=== PATIENT | male | born 1965 | race Caucasian/White ===

== ENCOUNTER → 2017-07-21 | Outpatient (CLI) | payer MEDICAID ==
[~2017-07-21] MED LIST: ASPI81TA50 PO; EFFIENT; NTG; lipitor
== END | disposition home or self-care (01) ==
LOC: RAD 09:15
PROVIDERS: ATTEND Internal Medicine
DX: R91.8 Other nonspecific abnormal finding of lung field (principal); Z87.01 Personal history of pneumonia (recurrent)
CPT/HCPCS: 71020

== ENCOUNTER 2020-05-02 19:38 | Inpatient (IN) | payer MEDICAID ==
[~2020-05-02] VITALS: Ht 172.7 cm; Wt 55.1 kg
--- NOTE | 2020-05-02 19:40 | NUR ---
LITO GEE FROM HOME FOR WEAKNESS, SOB, PRODUCTIVE COUGH "COUGHING UP WHITE STUFF FOR WEEKS, GETTING MORE AND MORE WEAK, FEELING SHORT OF BREATH, I'M BEEN FEELING SICK TO MY STOMACH AND THROWING UP TOO." PT ALTERED, PER EMS "HE COULD TELL US GENERAL INFO BUT THEN HE THOUGHT OUR EKG LEADS WERE A CELL PHONE CORD AND WAS TRYING TO CALL SOMEONE WITH IT." ORIENTED SELF, , PRESIDENT AND PLACE ONLY, UNABLE TO RECALL CURRENT MONTH/YEAR. EKG COMPLETED. CONT PULSE OX, BP, CARDIAC MONITORS IN PLACE. DR. WALTER AT BEDSIDE FOR EVALUATION. AWAITING ORDERS. CALL LIGHT IN REACH. FALL PRECAUTIONS IN PLACE. DENIES ANY CP, ABD PAIN OR ANY PAIN, DIZZINESS, ODONNELL, DIARRHEA OR RECENT TRAVEL.
--- NOTE | 2020-05-02 19:41 | NUR ---
FSBS 97 PER EMS ON SCENE. EMS ALSO REPORTS PT WAS HYPOXIC ON SCENE, 86-90%, PLACED ON 2L NC AND PULSE OX IMPROVED TO 97-99%
--- NOTE | 2020-05-02 20:00 | NUR ---
REPORT FROM GIRISH CABAN. FIRST CONTACT WITH PT. PT SITTING UP IN [facility], MOSTLY SLEEPY BUT ARROUSABLE TO VOICE. RR RAPID/SHALLOW WITH FREQUENT WET COUGH. BP/SPO2/ECG MONITORING IN PLACE. SINUS TACH NOTED ON MONITOR.
--- NOTE | 2020-05-02 20:01 | NUR ---
BEDSIDE REPORT AND TRANSFER OF CARE TO JAZMIN STOUT AT THIS TIME
[2020-05-02] MEDS ORDERED: SODIUM CHLORIDE 0.9% 1,000ML IVBOLUS ONE ×2 (20:30→21:00)
--- NOTE | 2020-05-02 20:30 | NUR ---
CHACORTA, family member: [phone]
[2020-05-02] MEDS ORDERED: CEFTRIAXONE PMX 1GM/50ML 50 ML ONE (20:44)
[2020-05-02 20:49] LABS: BASOPHILS % (AUTO) 0 % (0-1); EOSINOPHILS # (AUTO) 0.04 x10^3/uL (0-0.4); EOSINOPHILS % (AUTO) 0 % (1-7); LYMPHOCYTES # (AUTO) 0.28 x10^3/uL (1-3.4); LYMPHOCYTES % (AUTO) 3 % (22-44); MD NO; MEAN CORPUSCULAR HEMOGLOBIN 29.9 pg (27.5-34.5); MEAN CORPUSCULAR HGB CONC 33.1 g/dL (33.2-36.2); MEAN CORPUSCULAR VOLUME 90.3 fL (81-97); MEAN PLATELET VOLUME 8.6 fL (7.4-10.4); MONOCYTES # (AUTO) 0.32 x10^3/uL (0.2-0.8); MONOCYTES % (AUTO) 4 % (2-9); NEUTROPHILS # (AUTO) 8.26 x10^3/uL (1.8-6.8); NEUTROPHILS % (AUTO) 93 % (42-75); PLATELET COUNT 125 x10^3/uL (130-400); RED CELL DISTRIBUTION WIDTH 14.9 % (9.4-14.8)
--- NOTE | 2020-05-02 20:50 | NUR ---
ABX INITIATED. BC X2 DRAWN PRIOR TO ADMIN. PT UPDATED TO POC (ADMIT) AND DEMONSTRATES UNDERSTANDING.
[2020-05-02 20:59] LABS: ALANINE AMINOTRANSFERASE 9 U/L (12-78); ALBUMIN 2.7 g/dL (3.4-5.0); ANION GAP 7 mmol/L (5-15); CALCIUM 7.8 mg/dL (8.5-10.1); CHLORIDE 104 mmol/L (98-107); CREATININE 0.79 mg/dL (0.7-1.3)
[2020-05-02] MEDS ORDERED: CEFTRIAXONE PMX 1GM/50ML 50 ML IVPB ONE (21:00)
[2020-05-02 21:03] LABS: ALKALINE PHOSPHATASE 121 U/L (45-117); BILIRUBIN,TOTAL 0.5 mg/dL (0.2-1.0); TOTAL PROTEIN 7.4 g/dL (6.4-8.2); TROPONIN I < 0.015 ng/mL (0.000-0.045)
--- NOTE | 2020-05-02 21:15 | NUR ---
THIS TECH WAS IN ROOM WITH PT ASSISTING WITH REMOTE AND ATTEMPTING EKG. EKG ALREADY DONE
--- NOTE | 2020-05-02 21:20 | NUR ---
PT OFF NC, SPO2 86% ON RA. PLACED ON 2L O2 BY NC WITH IMMEDIATE IMPROVEMENT. REVIEWED NEED FOR SUPPLEMENTAL O2 WITH PT WHO IS LARGELY DISINTERESTED.
[2020-05-02] MEDS ORDERED: AZITHROMYCIN 500 MG in SODIUM CHLORIDE 0.9% 250 ML IV ONE (21:30)
--- NOTE | 2020-05-02 21:37 | NUR ---
NO S/S OF ABX RXN NOTED. IVF RUNNING SLOWLY PT IS REFUSING TO KEEP ARM STRAIGHT DESPITE EDUCATION. SECOND IV ESTABLISHED. SECOND LITER NS CONTINUES TO INFUSE. SECOND ABX INITIATED.
--- NOTE | 2020-05-02 22:05 | NUR ---
TO CT WITH TRANSPORTATION ASSISTANT
--- NOTE | 2020-05-02 22:18 | NUR ---
RETURNED FROM CT. PER TECH, PT LARGELY NON-COMPLIANT WITH INSTRUCTIONS FOR SCAN. IVF/ABX CONTINUE TO INFUSE. NO S/S OF ABX RXN NOTED. PT REMAINS MOSTLY DROWSY, ARROUSABLE TO VOICE AND LIGHT PHYSICAL STIM THEN RETURNS QUICKLY TO SLEEP. RR EVEN/UNLABORED.
[2020-05-02] MEDS ORDERED: OMNIPAQUE 350 MG/ML, 100ML BOTTLE ONE (22:19)
[2020-05-02] MEDS ORDERED: SODIUM CHLORIDE 0.9% 1,000 ML IV ONE (22:42)
[2020-05-02] MEDS ORDERED: CEFTRIAXONE PMX 1GM/50ML 50 ML IV SCH (23:00)
--- NOTE | 2020-05-02 23:17 | NUR ---
REPORT TO GIRISH SARGENT. PT PREPARED FOR TRANSPORT.
[2020-05-02] MEDS ORDERED: POLYETHYLENE GLYCOL 17 GM PACKET PO PRN (23:30)
[2020-05-02] MEDS ORDERED: DOXYCYCLINE 100 MG in DEXTROSE 5% 250 ML IV SCH (23:30)
[2020-05-02] MEDS ORDERED: ONDANSETRON ODT 4 MG PO PRN (23:30)
[2020-05-02] MEDS ORDERED: BISACODYL 10 MG SUPP PR PRN (23:30)
[2020-05-02 23:54] VITALS: BP 114/77
[2020-05-02 23:56] VITALS: BP 114/77
[2020-05-03] MEDS ORDERED: ALBUTEROL/IPRATROPIUM 2.5MG/0.5MG, 3 ML ONE
[2020-05-03] MEDS: HEPARIN 5,000 UNITS/ML, 1ML SQ SCH ×4 (00:19→23:23)
[2020-05-03] MEDS: DOXYCYCLINE 100MG TABLET PO SCH ×3 (00:19→20:50)
[2020-05-03] MEDS: NS + 20MEQ KCL 1,000 ML IV SCH ×3 (00:19→19:25)
[2020-05-03] MEDS: NICOTINE 14MG/24 HR PATCH.TD24 TD SCH ×2 (00:19→23:24)
[2020-05-03 00:20] LABS: MICROSCOPIC NOT IND
[2020-05-03] MEDS ORDERED: ALBUTEROL/IPRATROPIUM 2.5MG/0.5MG, 3 ML NPPB PRN (00:30)
[2020-05-03 00:45] VITALS: BP 118/68
[2020-05-03] MEDS ORDERED: ASPI-647 PO (01:09)
[2020-05-03 06:40] LABS: BASOPHILS % (AUTO) 0 % (0-1); EOSINOPHILS % (AUTO) 0 % (1-7); LYMPHOCYTES % (AUTO) 6 % (22-44); MD NO; MEAN CORPUSCULAR HGB CONC 33.3 g/dL (33.2-36.2); MEAN PLATELET VOLUME 8.6 fL (7.4-10.4); MONOCYTES # (AUTO) 0.23 x10^3/uL (0.2-0.8); MONOCYTES % (AUTO) 4 % (2-9); NEUTROPHILS # (AUTO) 4.91 x10^3/uL (1.8-6.8); NEUTROPHILS % (AUTO) 90 % (42-75); PLATELET COUNT 106 x10^3/uL (130-400); RED BLOOD COUNT 3.83 x10^6/uL (4.38-5.82); RED CELL DISTRIBUTION WIDTH 14.9 % (9.4-14.8)
[2020-05-03 06:43] LABS: ANION GAP 8 mmol/L (5-15); CALCIUM 7.2 mg/dL (8.5-10.1); CHLORIDE 110 mmol/L (98-107)
[2020-05-03 06:45] LABS: CREATININE 0.72 mg/dL (0.7-1.3)
[2020-05-03 07:17] VITALS: BP 95/60
[2020-05-03] MEDS: ALBUTEROL/IPRATROPIUM 2.5MG/0.5MG, 3 ML NPPB SCH ×2 (07:30→10:50)
[2020-05-03] MEDS: SENNA/DOCUSATE TABLET PO SCH (08:53)
[2020-05-03] MEDS ORDERED: DOXYCYCLINE 100 MG in DEXTROSE 5% 250 ML IV SCH (09:30)
[2020-05-03 11:10] LABS: INTERNATIONAL NORMALIZED RATIO 1.17 (0.93-1.1); PROTHROMBIN TIME 12.4 Seconds (9.6-11.5)
[2020-05-03] MEDS: POTASSIUM CHLORIDE 20 MEQ TAB.ER.PRT PO SCH (11:13)
[2020-05-03 13:11] VITALS: BP 102/63
[2020-05-03 13:44] LABS: MICROSCOPIC NOT IND
[2020-05-03] MEDS ORDERED: ASPI-650 PO (15:24)
[2020-05-03] MEDS ORDERED: ALBUTEROL SULFATE 2.5 MG/3 ML NEB SCH ×2 (16:00)
[2020-05-03] MEDS ORDERED: DEXTROSE IV SCH (17:00)
[2020-05-03] MEDS ORDERED: TRIMETHOPRIM IV SCH (17:00)
[2020-05-03] MEDS ORDERED: SULFAMETH IV SCH (17:00)
[2020-05-03] MEDS: ALBUTEROL HFA 90 MCG/SPRAY INH SCH ×2 (17:10→20:50)
[2020-05-03] MEDS: TRIMETHOPRIM IV SCH ×2 (17:16→23:23)
[2020-05-03] MEDS: DEXTROSE IV SCH ×2 (17:16→23:23)
[2020-05-03] MEDS: SULFAMETH IV SCH ×2 (17:16→23:23)
[2020-05-03 18:44] VITALS: BP 108/66
[2020-05-03] MEDS: CALCIUM CARBONATE 500 MG TAB.CHEW PO SCH (20:50)
[2020-05-04 03:00] VITALS: BP 102/63
[2020-05-04] MEDS: SULFAMETH IV SCH ×3 (05:22→18:06)
[2020-05-04] MEDS: ALBUTEROL HFA 90 MCG/SPRAY INH SCH ×4 (05:22→20:26)
[2020-05-04] MEDS: TRIMETHOPRIM IV SCH ×3 (05:22→18:06)
[2020-05-04] MEDS: DEXTROSE IV SCH ×3 (05:22→18:06)
[2020-05-04 06:05] LABS: BASOPHILS % (AUTO) 0 % (0-1); EOSINOPHILS # (AUTO) 0.09 x10^3/uL (0-0.4); EOSINOPHILS % (AUTO) 3 % (1-7); LYMPHOCYTES # (AUTO) 0.27 x10^3/uL (1-3.4); LYMPHOCYTES % (AUTO) 8 % (22-44); MD NO; MEAN CORPUSCULAR HEMOGLOBIN 30.2 pg (27.5-34.5); MEAN CORPUSCULAR HGB CONC 33.7 g/dL (33.2-36.2); MEAN CORPUSCULAR VOLUME 89.7 fL (81-97); MEAN PLATELET VOLUME 8.8 fL (7.4-10.4); MONOCYTES # (AUTO) 0.17 x10^3/uL (0.2-0.8); MONOCYTES % (AUTO) 5 % (2-9); NEUTROPHILS # (AUTO) 2.96 x10^3/uL (1.8-6.8); NEUTROPHILS % (AUTO) 85 % (42-75); PLATELET COUNT 104 x10^3/uL (130-400); RED BLOOD COUNT 3.47 x10^6/uL (4.38-5.82); RED CELL DISTRIBUTION WIDTH 15.2 % (9.4-14.8)
[2020-05-04 06:14] LABS: ALANINE AMINOTRANSFERASE 8 U/L (12-78); ALBUMIN 1.8 g/dL (3.4-5.0); ANION GAP 8 mmol/L (5-15); CALCIUM 7.6 mg/dL (8.5-10.1); CHLORIDE 111 mmol/L (98-107); CREATININE 0.58 mg/dL (0.7-1.3)
[2020-05-04 06:17] LABS: ALKALINE PHOSPHATASE 80 U/L (45-117); BILIRUBIN,TOTAL 0.3 mg/dL (0.2-1.0); TOTAL PROTEIN 5.3 g/dL (6.4-8.2)
[2020-05-04] MEDS: CALCIUM CARBONATE 500 MG TAB.CHEW PO SCH ×2 (07:33→20:26)
[2020-05-04] MEDS: DOXYCYCLINE 100MG TABLET PO SCH ×2 (07:33→20:26)
[2020-05-04] MEDS: HEPARIN 5,000 UNITS/ML, 1ML SQ SCH ×2 (07:33→15:33)
[2020-05-04] MEDS: POTASSIUM CHLORIDE 20 MEQ TAB.ER.PRT PO SCH (07:33)
[2020-05-04] MEDS: SENNA/DOCUSATE TABLET PO SCH (07:33)
[2020-05-04] MEDS: AMPICILLIN/SULBACTAM 3 GM in SODIUM CHLORIDE 0.9% 100 ML IV SCH ×3 (07:34→20:26)
[2020-05-04 07:38] VITALS: BP 107/70
[2020-05-04 07:44] VITALS: BP 109/68
[2020-05-04] MEDS ORDERED: BICT1TAB PO (12:06)
[2020-05-04 12:45] VITALS: BP 120/78
[2020-05-04 18:54] VITALS: BP 110/72
[2020-05-04] MEDS: GUAIFENESIN/DM 200-20MG, 10ML UDC PO PRN (20:26)
[2020-05-05] MEDS: NICOTINE 14MG/24 HR PATCH.TD24 TD SCH (00:02)
[2020-05-05] MEDS: HEPARIN 5,000 UNITS/ML, 1ML SQ SCH ×3 (00:02→15:25)
[2020-05-05] MEDS: DEXTROSE IV SCH ×4 (00:03→17:42)
[2020-05-05] MEDS: TRIMETHOPRIM IV SCH ×4 (00:03→17:42)
[2020-05-05] MEDS: SULFAMETH IV SCH ×4 (00:03→17:42)
[2020-05-05 00:51] VITALS: BP 120/68
[2020-05-05] MEDS: AMPICILLIN/SULBACTAM 3 GM in SODIUM CHLORIDE 0.9% 100 ML IV SCH ×4 (02:34→21:04)
[2020-05-05] MEDS: ALBUTEROL HFA 90 MCG/SPRAY INH SCH ×4 (05:12→21:04)
[2020-05-05 07:11] VITALS: BP 119/59
[2020-05-05 09:06] LABS: BASOPHILS % (AUTO) 0 % (0-1); EOSINOPHILS # (AUTO) 0.08 x10^3/uL (0-0.4); EOSINOPHILS % (AUTO) 2 % (1-7); LYMPHOCYTES % (AUTO) 5 % (22-44); MD NO; MEAN CORPUSCULAR HEMOGLOBIN 29.9 pg (27.5-34.5); MEAN CORPUSCULAR HGB CONC 32.8 g/dL (33.2-36.2); MEAN CORPUSCULAR VOLUME 91.3 fL (81-97); MEAN PLATELET VOLUME 8.9 fL (7.4-10.4); MONOCYTES # (AUTO) 0.23 x10^3/uL (0.2-0.8); MONOCYTES % (AUTO) 6 % (2-9); NEUTROPHILS # (AUTO) 3.34 x10^3/uL (1.8-6.8); NEUTROPHILS % (AUTO) 87 % (42-75); PLATELET COUNT 119 x10^3/uL (130-400); RED BLOOD COUNT 3.86 x10^6/uL (4.38-5.82); RED CELL DISTRIBUTION WIDTH 14.8 % (9.4-14.8)
[2020-05-05 09:18] LABS: ANION GAP 9 mmol/L (5-15); CALCIUM 7.7 mg/dL (8.5-10.1); CHLORIDE 104 mmol/L (98-107); CREATININE 0.81 mg/dL (0.7-1.3)
[2020-05-05] MEDS: DOXYCYCLINE 100MG TABLET PO SCH ×2 (09:31→21:04)
[2020-05-05] MEDS: CALCIUM CARBONATE 500 MG TAB.CHEW PO SCH ×2 (09:31→21:04)
[2020-05-05] MEDS: SENNA/DOCUSATE TABLET PO SCH (09:32)
[2020-05-05] MEDS: POTASSIUM CHLORIDE 20 MEQ TAB.ER.PRT PO SCH (09:32)
[2020-05-05 15:03] VITALS: BP 99/69
[2020-05-05] MEDS: CARVEDILOL 6.25 MG TABLET PO SCH (17:39)
[2020-05-05 19:12] VITALS: BP 91/63
[2020-05-05] MEDS: GUAIFENESIN/DM 200-20MG, 10ML UDC PO PRN (21:04)
[2020-05-06 00:30] VITALS: BP 111/62
[2020-05-06] MEDS: AMPICILLIN/SULBACTAM 3 GM in SODIUM CHLORIDE 0.9% 100 ML IV SCH ×4 (03:05→20:24)
[2020-05-06] MEDS: CARVEDILOL 6.25 MG TABLET PO SCH ×2 (05:57→18:23)
[2020-05-06] MEDS: ALBUTEROL HFA 90 MCG/SPRAY INH SCH ×4 (05:57→20:22)
[2020-05-06] MEDS: DEXTROSE IV SCH ×5 (05:57→23:20)
[2020-05-06] MEDS: TRIMETHOPRIM IV SCH ×5 (05:57→23:20)
[2020-05-06] MEDS: SULFAMETH IV SCH ×5 (05:57→23:20)
[2020-05-06 07:52] VITALS: BP 95/65
[2020-05-06] MEDS: POTASSIUM CHLORIDE 20 MEQ TAB.ER.PRT PO SCH (08:00)
[2020-05-06] MEDS: HEPARIN 5,000 UNITS/ML, 1ML SQ SCH ×4 (08:47→23:20)
[2020-05-06] MEDS: DOXYCYCLINE 100MG TABLET PO SCH ×2 (08:48→20:21)
[2020-05-06] MEDS: CALCIUM CARBONATE 500 MG TAB.CHEW PO SCH ×2 (08:48→20:21)
[2020-05-06] MEDS: SENNA/DOCUSATE TABLET PO SCH (08:56)
[2020-05-06 13:10] VITALS: BP 111/70
[2020-05-06 19:43] VITALS: BP 97/60
[2020-05-06] MEDS: NICOTINE 14MG/24 HR PATCH.TD24 TD SCH ×2 (23:20)
[2020-05-07 02:00] VITALS: BP 94/62
[2020-05-07] MEDS: AMPICILLIN/SULBACTAM 3 GM in SODIUM CHLORIDE 0.9% 100 ML IV SCH ×4 (02:46→20:56)
[2020-05-07] MEDS: SULFAMETH IV SCH ×4 (05:31→23:50)
[2020-05-07] MEDS: CARVEDILOL 6.25 MG TABLET PO SCH ×2 (05:31→18:00)
[2020-05-07] MEDS: TRIMETHOPRIM IV SCH ×4 (05:31→23:50)
[2020-05-07] MEDS: DEXTROSE IV SCH ×4 (05:31→23:50)
[2020-05-07] MEDS: ALBUTEROL HFA 90 MCG/SPRAY INH SCH ×4 (05:31→20:58)
[2020-05-07 07:01] VITALS: BP 114/57
[2020-05-07] MEDS: HEPARIN 5,000 UNITS/ML, 1ML SQ SCH ×4 (07:30→23:51)
[2020-05-07] MEDS: POTASSIUM CHLORIDE 20 MEQ TAB.ER.PRT PO SCH ×2 (08:00→09:13)
[2020-05-07] MEDS: DOXYCYCLINE 100MG TABLET PO SCH ×3 (09:00→20:56)
[2020-05-07] MEDS: SENNA/DOCUSATE TABLET PO SCH ×2 (09:00→09:13)
[2020-05-07] MEDS: CALCIUM CARBONATE 500 MG TAB.CHEW PO SCH ×3 (09:00→20:56)
[2020-05-07 12:16] VITALS: BP 85/57
[2020-05-07 17:59] VITALS: BP 84/40
[2020-05-07] MEDS ORDERED: SODIUM CHLORIDE 0.9%, 500ML IVBOLUS ONE (18:30)
[2020-05-07 20:00] VITALS: BP 96/57
[2020-05-07] MEDS: NICOTINE 14MG/24 HR PATCH.TD24 TD SCH (23:30)
[2020-05-08] VITALS (14 sets, daily range): BP systolic 72–128; BP diastolic 49–77
[2020-05-08] MEDS: AMPICILLIN/SULBACTAM 3 GM in SODIUM CHLORIDE 0.9% 100 ML IV SCH ×4 (03:30→22:03)
[2020-05-08] MEDS: DEXTROSE IV SCH ×3 (05:23→20:34)
[2020-05-08] MEDS: SULFAMETH IV SCH ×3 (05:23→20:34)
[2020-05-08] MEDS: ALBUTEROL HFA 90 MCG/SPRAY INH SCH ×4 (05:23→22:07)
[2020-05-08] MEDS: TRIMETHOPRIM IV SCH ×3 (05:23→20:34)
[2020-05-08] MEDS: CARVEDILOL 6.25 MG TABLET PO SCH (05:24)
[2020-05-08] MEDS: POTASSIUM CHLORIDE 20 MEQ TAB.ER.PRT PO SCH (08:32)
[2020-05-08] MEDS: CALCIUM CARBONATE 500 MG TAB.CHEW PO SCH ×2 (08:32→20:23)
[2020-05-08] MEDS: BICTEGRAV/EMTRICIT/TENOFOV ALA TAB PO SCH (08:32)
[2020-05-08] MEDS: HEPARIN 5,000 UNITS/ML, 1ML SQ SCH ×3 (08:33→23:30)
[2020-05-08] MEDS: SENNA/DOCUSATE TABLET PO SCH (08:37)
[2020-05-08] MEDS ORDERED: SODIUM CHLORIDE 0.9%, 500ML IVBOLUS ONE (09:00)
[2020-05-08] MEDS ORDERED: ALBUMIN HUMAN 25% 100 ML IV ONE (09:00)
[2020-05-08] MEDS: DOXYCYCLINE 100MG TABLET PO SCH ×2 (09:45→20:23)
[2020-05-08 11:40] LABS: TROPONIN I < 0.015 ng/mL (0.000-0.045)
[2020-05-08] MEDS ORDERED: SODIUM CHLORIDE INHALATION 7%, 4 ML NPPB ONE (14:30)
[2020-05-08 16:17] LABS: TROPONIN I < 0.015 ng/mL (0.000-0.045)
--- NOTE | 2020-05-08 18:34 | NUR ---
RENO GARBER Fall Risk Medication(s) present and receiving anticoagulants. Signed: 05/08/20 at 1841 by GURPREET HERNANDEZ
--- NOTE | 2020-05-08 18:35 | NUR ---
RENO GARBER Fall Risk Medications NOT present and receiving anticoagulants. Signed: 05/08/20 at 1836 by GURPREET HERNANDEZ Addendum: 05/08/20 at 1841 by GURPREET HERNANDEZ RENO GARBER Fall Risk Medication(s) present and receiving anticoagulants. Signed: 05/08/20 at 1842 by GURPREET HERNANDEZ
[2020-05-08 19:30] LABS: TROPONIN I < 0.015 ng/mL (0.000-0.045)
[2020-05-08] MEDS: CARVEDILOL 3.125 MG TABLET PO SCH (20:00)
[2020-05-08] MEDS: NICOTINE 14MG/24 HR PATCH.TD24 TD SCH (23:50)
[2020-05-09] MEDS: TRIMETHOPRIM IV SCH ×4 (01:50→22:08)
[2020-05-09] MEDS: SULFAMETH IV SCH ×4 (01:50→22:08)
[2020-05-09] MEDS: DEXTROSE IV SCH ×4 (01:50→22:08)
[2020-05-09 02:00] VITALS: BP 101/66
[2020-05-09] MEDS: AMPICILLIN/SULBACTAM 3 GM in SODIUM CHLORIDE 0.9% 100 ML IV SCH ×4 (03:42→23:23)
[2020-05-09] MEDS: ALBUTEROL HFA 90 MCG/SPRAY INH SCH ×4 (06:00→21:00)
[2020-05-09] MEDS: CARVEDILOL 3.125 MG TABLET PO SCH ×2 (06:00→17:04)
[2020-05-09 06:15] VITALS: BP 98/65
[2020-05-09 06:48] VITALS: BP 112/68
[2020-05-09] MEDS: HEPARIN 5,000 UNITS/ML, 1ML SQ SCH ×3 (07:30→22:14)
[2020-05-09] MEDS ORDERED: FENTANYL PF 100 MCG/2ML ONE (08:38)
[2020-05-09] MEDS ORDERED: MIDAZOLAM 1 MG/ML, 5ML ONE (08:38)
[2020-05-09] MEDS ORDERED: CHLORHEXIDINE 15 ML UDC ONE (08:41)
[2020-05-09] MEDS: SENNA/DOCUSATE TABLET PO SCH (09:00)
[2020-05-09] MEDS: BICTEGRAV/EMTRICIT/TENOFOV ALA TAB PO SCH (12:12)
[2020-05-09] MEDS: CALCIUM CARBONATE 500 MG TAB.CHEW PO SCH ×2 (12:12→22:08)
[2020-05-09] MEDS: DOXYCYCLINE 100MG TABLET PO SCH ×2 (12:13→22:08)
[2020-05-09] MEDS: POTASSIUM CHLORIDE 20 MEQ TAB.ER.PRT PO SCH (12:13)
[2020-05-09 12:23] VITALS: BP 119/65
[2020-05-09] MEDS ORDERED: LIDOCAINE 4% TOPICAL SOLUTION 50 ML ONE (18:40)
[2020-05-09] MEDS ORDERED: LIDOCAINE 2%, 20ML ONE (18:40)
[2020-05-09] MEDS ORDERED: LIDOCAINE GEL 2%, 5ML ONE (18:40)
[2020-05-09] MEDS: NICOTINE 14MG/24 HR PATCH.TD24 TD SCH (22:08)
[2020-05-10 02:10] VITALS: BP 120/79
[2020-05-10] MEDS: SULFAMETH IV SCH ×2 (02:15→08:12)
[2020-05-10] MEDS: TRIMETHOPRIM IV SCH ×2 (02:15→08:12)
[2020-05-10] MEDS: DEXTROSE IV SCH ×2 (02:15→08:12)
[2020-05-10] MEDS: ALBUTEROL HFA 90 MCG/SPRAY INH SCH ×4 (06:00→20:21)
[2020-05-10 06:04] VITALS: BP 115/71
[2020-05-10] MEDS: AMPICILLIN/SULBACTAM 3 GM in SODIUM CHLORIDE 0.9% 100 ML IV SCH ×4 (06:08→23:52)
[2020-05-10] MEDS: CARVEDILOL 3.125 MG TABLET PO SCH ×2 (06:09→17:33)
[2020-05-10 07:05] VITALS: BP 120/63
[2020-05-10] MEDS: HEPARIN 5,000 UNITS/ML, 1ML SQ SCH ×3 (07:30→23:30)
[2020-05-10] MEDS: POTASSIUM CHLORIDE 20 MEQ TAB.ER.PRT PO SCH (08:12)
[2020-05-10] MEDS: DOXYCYCLINE 100MG TABLET PO SCH ×2 (08:16→20:21)
[2020-05-10] MEDS: SENNA/DOCUSATE TABLET PO SCH (08:16)
[2020-05-10] MEDS: CALCIUM CARBONATE 500 MG TAB.CHEW PO SCH ×2 (08:16→20:22)
[2020-05-10] MEDS: BICTEGRAV/EMTRICIT/TENOFOV ALA TAB PO SCH (08:17)
[2020-05-10 13:40] VITALS: BP 104/69
[2020-05-10 20:09] VITALS: BP 105/68
[2020-05-10] MEDS: NICOTINE 14MG/24 HR PATCH.TD24 TD SCH (23:52)
[2020-05-11 01:12] VITALS: BP 93/61
[2020-05-11] MEDS: ALBUTEROL HFA 90 MCG/SPRAY INH SCH (05:39)
[2020-05-11] MEDS: CARVEDILOL 3.125 MG TABLET PO SCH (05:39)
[2020-05-11] MEDS: AMPICILLIN/SULBACTAM 3 GM in SODIUM CHLORIDE 0.9% 100 ML IV SCH (05:39)
[2020-05-11 05:43] VITALS: BP 110/76
[2020-05-11] MEDS ORDERED: AMOX1TAB64 PO (07:19)
[2020-05-11] MEDS ORDERED: DOXY100T PO (07:19)
[2020-05-11 07:25] VITALS: BP 114/77
[2020-05-11] MEDS: HEPARIN 5,000 UNITS/ML, 1ML SQ SCH (07:30)
[2020-05-11] MEDS: POTASSIUM CHLORIDE 20 MEQ TAB.ER.PRT PO SCH (08:00)
[2020-05-11] MEDS: SENNA/DOCUSATE TABLET PO SCH (08:14)
[2020-05-11] MEDS: DOXYCYCLINE 100MG TABLET PO SCH (08:15)
[2020-05-11] MEDS: BICTEGRAV/EMTRICIT/TENOFOV ALA TAB PO SCH (08:15)
[2020-05-11] MEDS: CALCIUM CARBONATE 500 MG TAB.CHEW PO SCH (08:15)
== END 2020-05-11 10:19 | disposition home or self-care (01) | DRG 890 ==
LOC: ED 20:46 → EDIP 22:58 → 4WST 23:45 → 4NW 05-03 12:50 → 5SO 05-08 12:26
PROVIDERS: ADMIT Hospitalist; ATTEND Internal Medicine
PROC: 0B9C7ZX Drainage of Right Upper Lung Lobe, Via Natural or Artificial Opening, Diagnostic (ICD-10-PCS; principal; 2020-05-09 09:00)
DX: A41.9 Sepsis, unspecified organism (principal); B20 Human immunodeficiency virus [HIV] disease; J96.01 Acute respiratory failure with hypoxia; R65.21 Severe sepsis with septic shock; E43 Unspecified severe protein-calorie malnutrition; G93.41 Metabolic encephalopathy; R64 Cachexia; D69.6 Thrombocytopenia, unspecified; J15.9 Unspecified bacterial pneumonia; D63.8 Anemia in other chronic diseases classified elsewhere; D72.819 Decreased white blood cell count, unspecified; E87.6 Hypokalemia; F17.210 Nicotine dependence, cigarettes, uncomplicated; F32.9 Major depressive disorder, single episode, unspecified; I25.10 Atherosclerotic heart disease of native coronary artery without angina pectoris; J44.0 Chronic obstructive pulmonary disease with (acute) lower respiratory infection; Z20.828 Contact with and (suspected) exposure to other viral communicable diseases; J98.4 Other disorders of lung; L30.9 Dermatitis, unspecified; I25.2 Old myocardial infarction; Z95.5 Presence of coronary angioplasty implant and graft; Z91.19 Patient's noncompliance with other medical treatment and regimen; Z90.89 Acquired absence of other organs; Z88.8 Allergy status to other drugs, medicaments and biological substances; Z79.82 Long term (current) use of aspirin; Z68.1 Body mass index [BMI] 19.9 or less, adult; Z88.2 Allergy status to sulfonamides; Z88.1 Allergy status to other antibiotic agents
CPT/HCPCS: 31624; 36415; 70450; 71045; 71046; 71275; 80048; 80053; 81003; 82330; 82533; 82607; 83605; 83880; 84145; 84443; 84484; 85025; 85379; 85610; 86361; 86480; 86592; 86635; 86698; 86701; 86702; 86803; 87015; 87040; 87070; 87081; 87102; 87116; 87205; 87206; 87281; 87305; 87385; 87449; 87535; 87536; 87806; 87903; 87904; 88108; 88112; 88305; 88312; 93005; 93306; 94640; 96365; 99152; 99153; 99291; G0378; J0295; J0456; J0696; J1644; J2250; J3010; J3480; J7060; P9047; Q9967; G0475; J7030; J7040; J7050; U0001-CS